=== PATIENT | male | born 1955 | race Caucasian/White ===

== ENCOUNTER 2023-06-18 11:06 | Inpatient (IN) | payer OTHER, MEDICARE ==
[2023-06-18 12:06] VITALS: BMI 25.5
[2023-06-18] MEDS ORDERED: DICYCLOMINE HCL 10 MG CAPSULE PO PRN (13:34)
[2023-06-18] MEDS ORDERED: IBUPROFEN 400 MG TABLET (FP) PO PRN (13:34)
[2023-06-18] MEDS ORDERED: BISMUTH SUBSALICYLATE 524 MG/30 ML PO PRN (13:34)
[2023-06-18] MEDS ORDERED: NALOXONE HCL (KLOXXADO) 8 MG SPRAY NS PRN (13:34)
[2023-06-18] MEDS ORDERED: LOPERAMIDE HCL 2 MG CAPSULE PO PRN (13:34)
[2023-06-18] MEDS ORDERED: hydrOXYzine PAMOATE 25 MG CAPSULE (FP) PO PRN (13:34)
[2023-06-18] MEDS ORDERED: BENZOCAINE/MENTHOL (CHLORASEPTIC ) LOZENGE MM PRN (13:34)
[2023-06-18] MEDS ORDERED: NALOXONE HCL 0.4 MG/ML VIAL IM PRN (13:34)
[2023-06-18] MEDS ORDERED: ONDANSETRON *ODT* 4 MG TABLET SL PRN (13:34)
[2023-06-18] MEDS ORDERED: IBUPROFEN 600 MG TABLET (FP) PO PRN (13:34)
[2023-06-18] MEDS ORDERED: POLYETHYLENE GLYCOL (HEALTHYLAX) 3350 17 GM PACKET PO PRN (13:34)
[2023-06-18] MEDS ORDERED: MAG HYDROX/AL HYDROX/SIMETH 30 ML UNIT-DOSE CUP PO PRN (13:34)
[2023-06-18] MEDS ORDERED: guaiFENesin 600 MG TABLET.ER (FP) PO PRN (13:34)
[2023-06-18] MEDS ORDERED: MAGNESIUM HYDROX 2400MG/30ML ORAL SUSPENSION 30 ML CUP PO PRN (13:34)
[2023-06-18] MEDS ORDERED: BENZONATATE 200 MG CAPSULE PO PRN (13:34)
[2023-06-18] MEDS ORDERED: ACETAMINOPHEN 325 MG TABLET (FP) PO PRN (13:34)
[2023-06-18] MEDS: chlordiazePOXIDE HCL 25 MG CAPSULE PO PRN (13:58)
[2023-06-18] MEDS: PRENATAL VITAMINS W/ FOLIC ACID TABLET (FP) PO SCH (14:01)
[2023-06-18] MEDS ORDERED: chlordiazePOXIDE HCL 25 MG CAPSULE ONE (14:06)
[2023-06-18] MEDS ORDERED: PRENATAL VITAMINS W/ FOLIC ACID TABLET (FP) PO ONE (14:06)
[2023-06-18] MEDS: GABAPENTIN 400 MG CAPSULE PO SCH (14:39)
[2023-06-18] MEDS: chlordiazePOXIDE HCL 25 MG CAPSULE PO SCH (17:07)
[2023-06-18] MEDS: MELATONIN 5 MG TABLETS PO SCH (22:19)
[2023-06-18] MEDS: ROSUVASTATIN CA 5 MG TABLET PO SCH (22:19)
[2023-06-18] MEDS: THIAMINE HCL 100 MG TABLET (FP) PO SCH (22:19)
[2023-06-19] MEDS: lamoTRIgine 100 MG TABLET PO SCH (10:22)
[2023-06-19] MEDS: LOSARTAN POTASSIUM 50 MG TABLET PO SCH (10:23)
[2023-06-19 12:04] LABS: BASO % 1.3 % (0-2.0); EOS % 4.9 % (0-4.5); HEMATOCRIT 40.6 % (35.4-49); HEMOGLOBIN 13.5 GM/dL (11.7-16.9); LYMPH % 23.1 % (8-40); MCHC 33.2 g/dl (32.0-35.9); MEAN CELL VOLUME 105.6 fl (80-96); MEAN PLT VOLUME 7.1 fl (7.5-11.1); MONO % 17.2 % (3.8-10.2); NEUT % 53.5 % (42.8-82.8); PLATELET COUNT 230 10^3/uL (134-434); RBC 3.84 M/mm3 (4.00-5.60); RDW 14.6 % (11.9-15.9); WHITE BLOOD COUNT 3.1 K/mm3 (4.0-10.0)
[2023-06-19 12:06] LABS: CHLORIDE 103 mmol/L (98-107); POTASSIUM 4.6 mmol/L (3.5-5.1); SODIUM 138 mmol/L (136-145)
[2023-06-19 12:28] LABS: ALBUMIN 3.9 g/dl (3.4-5.0)
[2023-06-19 12:29] LABS: ANION GAP 4 mmol/L (4-13); BLOOD UREA NITROGEN 22.6 mg/dL (7-18); CALCIUM 9.7 mg/dL (8.5-10.1); CO2 31 mmol/L (21-32); GLUCOSE,RANDOM 106 mg/dL (74-106)
[2023-06-19 12:31] LABS: CREATININE 1.3 mg/dL (0.55-1.3)
[2023-06-19 12:32] LABS: SGOT/AST 120 U/L (15-37); SGPT/ALT 164 U/L (13-61)
[2023-06-19 12:33] LABS: BILIRUBIN,TOTAL 0.6 mg/dL (0.2-1)
[2023-06-19 12:34] LABS: ALK PHOS 82 U/L (45-117)
[2023-06-19 12:46] LABS: ANISOCYTOSIS 0; MACROCYTOSIS 2+
[2023-06-19] MEDS ORDERED: LORazepam 1 MG TABLET PO PRN (13:16)
[2023-06-19] MEDS: LACTULOSE 20 GM/30 ML UDC (FOR ORAL USE ONLY) PO SCH (13:42)
[2023-06-19] MEDS ORDERED: LORazepam 2 MG TABLET PO SCH (18:00)
[2023-06-19] MEDS: LORazepam 1 MG TABLET PO SCH (18:06)
[2023-06-19] MEDS: LORazepam 2 MG TABLET PO SCH (18:14)
[2023-06-19] MEDS: GABAPENTIN 300 MG CAPSULE PO SCH (22:46)
[2023-06-20] MEDS ORDERED: chlordiazePOXIDE HCL 25 MG CAPSULE PO SCH (05:00)
[2023-06-21] MEDS ORDERED: chlordiazePOXIDE HCL 10 MG CAPSULE PO PRN
[2023-06-21] MEDS ORDERED: LORazepam 0.5 MG TABLET PO PRN
[2023-06-21] MEDS ORDERED: chlordiazePOXIDE HCL 10 MG CAPSULE PO SCH (05:00)
[2023-06-21] MEDS: LORazepam 1 MG TABLET PO SCH (05:53)
[2023-06-22] MEDS ORDERED: chlordiazePOXIDE HCL 10 MG CAPSULE PO SCH (05:00)
[2023-06-22] MEDS: LORazepam 0.5 MG TABLET PO SCH (05:41)
[2023-06-22 14:08] LABS: HEMATOCRIT 38.5 % (35.4-49); HEMOGLOBIN 13.1 GM/dL (11.7-16.9); MCH 35.7 pg (25.7-33.7); MEAN PLT VOLUME 7.4 fl (7.5-11.1); PLATELET COUNT 222 10^3/uL (134-434); RBC 3.66 M/mm3 (4.00-5.60); RDW 14.3 % (11.9-15.9); WHITE BLOOD COUNT 3.3 K/mm3 (4.0-10.0)
[2023-06-22 14:25] LABS: POTASSIUM 4.1 mmol/L (3.5-5.1)
[2023-06-22 14:27] LABS: CALCIUM 9.3 mg/dL (8.5-10.1)
[2023-06-22 14:28] LABS: ALBUMIN 3.7 g/dl (3.4-5.0); BLOOD UREA NITROGEN 15.4 mg/dL (7-18)
[2023-06-22 14:31] LABS: CREATININE 1.4 mg/dL (0.55-1.3); PHOSPHOROUS 3.7 mg/dL (2.5-4.9)
[2023-06-22 14:44] LABS: ANISOCYTOSIS 0; MACROCYTOSIS 1+
[2023-06-23] MEDS ORDERED: chlordiazePOXIDE HCL 10 MG CAPSULE PO ONE (05:00)
[2023-06-23] MEDS: LORazepam 0.5 MG TABLET PO ONE (05:44)
[2023-06-23 09:49] VITALS: BP 123/98; PULSE 65; RESP 16; TEMP 97.6
== END 2023-06-23 09:18 | disposition home or self-care (01) | DRG 897 ==
LOC: YASAS 11:06 → Y6N 13:07
PROVIDERS: ADMIT Allergy & Immunology; ATTEND Surgery
PROC: HZ2ZZZZ Detoxification Services for Substance Abuse Treatment (ICD-10-PCS; principal; 2023-06-17)
DX: F10.230 Alcohol dependence with withdrawal, uncomplicated (principal); E72.20 Disorder of urea cycle metabolism, unspecified; E78.5 Hyperlipidemia, unspecified; I10 Essential (primary) hypertension; G40.A09 Absence epileptic syndrome, not intractable, without status epilepticus; Z87.891 Personal history of nicotine dependence
CPT/HCPCS: 36415; 80053; 80069; 80307; 82140; 84450; 85025; 86780; 93005; 93010